=== PATIENT | male | born 1965 | race Caucasian/White ===

== ENCOUNTER 2024-03-05 09:38 | Emergency (ER) | payer BC, SELFPAY ==
[2024-03-05 09:41] VITALS: BP 135/98
--- NOTE | 2024-03-05 10:24 | ED.GENMED ---
History of Present Illness
General
Chief Complaint: Dehydration Symptoms
Source: patient and records
Exam Limitations: none
Time Seen by Provider: 03/05/24 09:53
Nursing documentation reviewed up to this point in time: agreed with
History of Present Illness
History of Present Illness:
59-year-old male hypertension on lisinopril prediabetic on Zepbound for few months, some diarrhea with increase his dosage, was seen at a clinic in [place] had extensive workup including stool studies results of which are reviewed overall negative,
labs showed renal insufficiency treatment couple bags of fluid, held his dose for a week if 5 mg and restarted for 5 days ago with the start of his symptoms again is felt pretty miserable the past 3 to 4 days, every time he eats food goes right
through him he is nauseous has lost about 30 pounds, does not drink alcohol or smoke feels dizzy no fevers, does get some abdominal cramping, he did see his PCP who prescribed a meds, his HOLLIE inhibitor has been held,
Past History
Past History
ED Past Medical History: HTN and NIDDM
ED Past Surgical History: Orthopedic and Urological
Social History
Tobacco: Non-smoker
Alcohol: None
Drug: None
Personal:
Living: with family
Employment: Employed
Review of Systems
Review of Systems
All Other Systems: Not applicable
Constitutional: Reports weight loss and fatigue; Denies fever
EENT: Reports no symptoms
Respiratory: Reports no symptoms
ABD/GI: Reports abdominal pain, nausea and vomiting
: Reports no symptoms
Musculoskeletal: Reports no symptoms
Skin: Reports no symptoms
Neurological: Reports dizzy and weakness
Endocrine: Reports no symptoms
Phy Exam
Physical Exam
Physical Exam:
Physical Exam
General: 59 male looks uncomfortable nontoxic
Neck: Dry mucous member
Heart: s1/s2 regular rate and rhythm, no murmur. equal radial pulses.
Lungs: no acute respiratory distress. clear bilaterally
Abdomen: Not
Neuro: alert and oriented. no focal neurological deficits
Skin: no rash
Psychiatric: well kept. interactive and cooperative
Extremities: no edema.
Course
Orders/Labs/Results
Orders:
Orders
03/05/24 10:15
0.9% Sodium Chloride 1000 ml [Nss] 1,000 ml IV BOLUS
Loperamide [Imodium] 2 mg PO NOW STA
03/05/24 10:40
Complete Blood Count/With Diff Urgent
Comprehensive Metabolic Panel Urgent
Lipase Urgent
Magnesium Urgent
03/05/24 11:07
Ondansetron Injectable [Zofran] 4 mg IV NOW STA
03/05/24 11:57
0.9% Sodium Chloride 1000 ml [Nss] 1,000 ml IV BOLUS
Abnormal Lab Results
03/05/24
10:40
Absolute Monos (auto) 1.5 H 10^3/uL
(0.1-0.6)
Absolute Eos (auto) 0.9 H 10^3/uL
(0-0.7)
Monocytes % 15.7 H %
(1.7-9.3)
Eosinophils % 9.4 H %
(0-6)
Carbon Dioxide 20 L mmol/L
(22-30)
BUN 36 H mg/dl
(9-20)
Creatinine 1.4 H mg/dL
(0.7-1.3)
Glucose 127 H mg/dl
(70-99)
03/05/24 10:40
03/05/24 10:40
Vital Signs
Initial and Last Documented VS:
Initial Vital Signs
Temp Pulse Resp BP Pulse Ox
98.2 F 112 16 135/98 96
03/05/24 09:41 03/05/24 09:41 03/05/24 09:41 03/05/24 09:41 03/05/24 09:41
Last Documented Vital Signs
Temp Pulse Resp BP Pulse Ox
98.2 F 112 16 135/98 96
03/05/24 09:41 03/05/24 09:41 03/05/24 09:41 03/05/24 09:41 03/05/24 09:41
MDM/Problems Addressed
Differential Diagnosis Includes:
Dehydration electrolyte abnormality medication effect doubt infectious colitis
MDM/Problems Addressed:
Diarrhea
Chronic conditions affecting care: DM and HTN
Acute Exacerbation and/or Progression of Chronic Illness: DM and HTN
*Pulse Oximetry
Patient hypoxic: no
*Critical Care Note
Total Time (30-74mins, 75-104mins- exclusive of procedures): Not Applicable
Data Reviewed
Review of Other/Old Records Reveals: Labs and Records
Source: patient and records
Further Testing Considered But Not Given:
Stool studies from [place] reviewed extensive and were negative will not repeat at this point
Update Note
Update Note:
Seems like his symptoms are related to his Zepbound, will start saline hydration check labs not repeated stool studies at this point
Update labs are noted
1:40 PM update patient feeling better, he has not taken the med this week he did get a prescription for 2.5 called into the pharmacy he will talk to his primary care prescribing doctor about dosing may be switching to a new med
ED Attending Note
-
Portions of this chart may have been created with voice recognition software.� Occasional wrong word or��sound alike� substitutions may have occurred due to the inherent limitations of voice recognition software.
Discharge Plan
Departure
Patient Disposition: Home (Routine Discharge)
Date of Disposition: 03/05/24
Time of Disposition: 13:38
Patient with high blood pressure during this ER visit?: No
Condition: Good
Covid-19: Not Applicable
Discharge Problem:
Dehydration
Instructions: Dehydration, Adult (DC)
Prescriptions:
New
ondansetron 4 mg tablet,disintegrating
4 mg PO Q8H PRN (Reason: nausea and vomiting) Qty: 10 0RF
Referrals:
Neal Baker MD [Family Provider] - Next open appointment
Interventions
Interventions:
*Risk Screen - Suicide Last Done: 03/05/24 09:41
*General Assessment Last Done: 03/05/24 09:41
*Neglect/Abuse Screening Last Done: 03/05/24 09:41
Discharge Date and Time
Print Language: HEBREW
[2024-03-05] MEDS: NSS 1000 IV ×2 (10:43→12:39)
[2024-03-05 10:56] LABS: % Basophils 0.2 % (0-2); % Eosinophils 9.4 % (0-6); % Immature Granulocytes 0.4 % (0-0.5); % Lymphocytes 22.2 % (20.5-51.1); % Monocytes 15.7 % (1.7-9.3); % Neutrophils 52.1 % (42.2-75.2); Absolute Eosinophils 0.9 10^3/uL (0-0.7); Absolute Lymphocytes 2.2 10^3/uL (1.2-3.4); Absolute Monocytes 1.5 10^3/uL (0.1-0.6); Absolute Neutrophils 5.1 10^3/uL (1.4-6.5); Hematocrit 49.8 % (39.0-52.0); Hemoglobin 17.6 g/dL (13.0-18.0); Mean Corp Hgb Conc. 35.3 g/dL (33.0-37.0); Mean Corpuscular Hgb 29.6 pg (27.0-31.0); Mean Corpuscular Volume 83.8 fL (80.0-94.0); Mean Platelet Volume 9.9 fL (7.4-10.4); Nucleated Red Blood Cells % 0 % (-); Platelet Count 309 10^3/uL (130-400); Red Blood Cell Count 5.94 10^6/uL (4.70-6.10); Red Cell Dist. Width 13.6 % (11.5-14.5); White Blood Cell Count 9.8 10^3/uL (4.8-10.8)
[2024-03-05 11:13] LABS: ALT (SGPT) 17 U/L (0-50); AST (SGOT) 17 U/L (17-59); Albumin 3.7 g/dl (3.5-5.0); Alkaline Phosphatase 61 U/L (38-126); Blood Urea Nitrogen 36 mg/dl (9-20); Calcium 9.2 mg/dl (8.4-10.2); Carbon Dioxide 20 mmol/L (22-30); Chloride 103 mmol/L (98-107); Glucose 127 mg/dl (70-99); Lipase 53 U/L (23-300); Magnesium 2.2 mg/dl (1.6-2.3); Sodium 136 mmol/L (135-145); Total Bilirubin 0.5 mg/dl (0.2-1.3); Total Protein 6.5 g/dl (6.3-8.2)
[2024-03-05 11:18] LABS: Potassium 4.1 mmol/L (3.5-5.1)
[2024-03-05] MEDS: ZOFRAN 4 MG IV (11:45)
[2024-03-05] MEDS: IMODIUM 2 MG PO (11:45)
[2024-03-05 14:34] VITALS: BP 136/72
== END 2024-03-05 14:35 | disposition home or self-care (01) ==
LOC: EMR 09:38
PROVIDERS: EMERGENCY PHYSICIAN Emergency Medicine; FAMILY PHYSICIAN Internal Medicine
DX: E86.0 Dehydration (principal); R10.9 Unspecified abdominal pain; R11.2 Nausea with vomiting, unspecified; R42 Dizziness and giddiness; R19.7 Diarrhea, unspecified; I10 Essential (primary) hypertension; R73.03 Prediabetes; Z79.899 Other long term (current) drug therapy
CPT/HCPCS: 99284; 96374; 96361 ×3; 80053; 83690; 83735; 85025

== ENCOUNTER → 2024-07-19 10:12 | Outpatient (REF) | payer BC, SELFPAY | LOC: HWRCS 10:12 | PROVIDERS: ATTENDING PHYSICIAN Internal Medicine | DX: I10 Essential (primary) hypertension (principal) | CPT/HCPCS: 93306 ==